=== PATIENT | female | born 1990 | race Caucasian/White ===

== ENCOUNTER 2017-06-23 14:24 | Emergency (ER) | payer BC ==
[~2017-06-23] VITALS: Ht 172.7 cm; Wt 70.5 kg
[~2017-06-23 14:24] MED LIST: ADVIL200 MG PO; CARAFATE S1 GM/10 ML PO; CEPHALEXIN500 M1 PO; METHOCARBAMOL500 MG PO; MOTRIN 600600 MG/TAB PO; NO HOME MEDICATIONS; NORVASC 5MG5 MG/TAB PO; PERCOCET 325 MG1 TA2 PO; PERCOCET 325 MG1 TAB PO; PRENATAL1 TA1 PO; PRENATAL1 TA2 PO; PRENATAL1 TA7 PO; PRILOSEC 20MG20 MG PO; PROTONIX 40MG T40 MG PO; PYRIDIUM200 M1 PO; ROBAXIN 50500 MG/TAB PO; Senokot-S PO; ZANTAC 7575 MG PO; ZOFRAN 4MG T4 MG/TAB PO; ZOFRAN8 MG PO; [UNRECOGNIZED DRUG - REMARK]
[2017-06-23 14:26] VITALS: BP 123/78; TEMP 98.8
[2017-06-23 15:22] LABS: BASO # 0.1 (0.0-0.2); BASO % 0.4 % (0.0-2.0); EOS % 0.1 % (0-4.0); GRAN # 13.5 (1.4-6.5); GRAN % 84.9 % (42.2-75.2); HEMATOCRIT 43.5 % (37.0-47.0); HEMOGLOBIN 14.2 g/dl (12.5-16.0); LYMPH % 6.5 % (20.0-51.0); MEAN CELL VOLUME 92 fl (80.0-100.0); MEAN CORPUSCULAR HEMOGLOBIN 30 pg (27.0-31.0); MEAN CORPUSCULAR HGB CONC 33 g/dl (33.0-37.0); MEAN PLATELET VOLUME 10.5 fl (7.4-10.4); MONO # 1.2 (0.1-0.6); MONO % 7.7 % (1.7-9.3); PLATELET COUNT 283 K/mm3 (130-400); RED BLOOD COUNT 4.75 M/mm3 (4.10-5.30); REDCELL DISTRIBUTION WIDTH-CV 13.1 % (11.5-14.5)
[2017-06-23 15:41] LABS: ALBUMIN 4.4 gm/dL (3.5-5.0); BILIRUBIN,TOTAL 0.8 mg/dL (0.0-1.0); CALCIUM 9.3 mg/dL (8.4-10.2); CREATININE, serum 0.75 mg/dL (0.52-1.25); POTASSIUM 3.8 mmol/L (3.4-5.0); TOTAL PROTEIN 8.3 gm/dL (6.4-8.2)
[2017-06-23] MEDS ORDERED: AMOXICILLIN 8751 TAB PO (16:17)
[2017-06-23] MEDS ORDERED: PREDNISONE20 MG PO (16:18)
[2017-06-23 16:58] VITALS: PULSE 91
== END 2017-06-23 16:58 | disposition home or self-care (01) ==
LOC: COL.ER 14:24
PROVIDERS: Family Medicine
DX: J03.90 Acute tonsillitis, unspecified (principal)
CPT/HCPCS: J0696; J2405; J2930; J7030

== ENCOUNTER → 2017-08-15 | Outpatient (CLI) | payer BC ==
[~2017-08-15] MED LIST changes: +AMOXICILLIN 8751 TAB PO; +PREDNISONE20 MG PO
== END ==
LOC: COL.RAD 09:40
DX: N83.291 Other ovarian cyst, right side (principal); N83.02 Follicular cyst of left ovary; N83.01 Follicular cyst of right ovary